=== PATIENT | female | born 1995 | race African-American/Black ===

== ENCOUNTER 2019-05-12 05:24 | Emergency (ER) | payer SELFPAY ==
[~2019-05-12] VITALS: Ht 165.1 cm; Wt 61.2 kg
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
--- NOTE | 2019-05-12 06:30 | NUR ---
PT RESTING IN BED, NAD NOTED. WILL CONTINUE TO MONITOR.
--- NOTE | 2019-05-12 07:05 | NUR ---
Patient discharged to home in stable condition. Written and verbal after care instructions given. Patient verbalizes understanding of instruction.
[2019-05-12 07:06] VITALS: BP 115/72
== END 2019-05-12 07:08 | disposition home or self-care (01) ==
LOC: ER 05:26
DX: F41.9 Anxiety disorder, unspecified (principal)

== ENCOUNTER 2024-11-05 13:51 | Emergency (ER) | payer MEDICAID ==
[~2024-11-05] VITALS: Ht 167.6 cm; Wt 61.2 kg
[2024-11-05 14:15] VITALS: BP 120/85; TEMP 98.2
[2024-11-05] MEDS ORDERED: ONDA4TAB5 PO (14:48)
[2024-11-05] MEDS ORDERED: IBUP-1955 PO (14:48)
[2024-11-05] MEDS ORDERED: BENZ-13 PO (14:48)
[2024-11-05] MEDS ORDERED: IBUPROFEN 600 MG TABLET ONE (14:53)
[2024-11-05] MEDS: IBUPROFEN 600 MG TABLET PO ONE (15:02)
[2024-11-05 15:03] VITALS: O2SAT 99
== END 2024-11-05 15:03 | disposition home or self-care (01) ==
LOC: ER 13:51
DX: J06.9 Acute upper respiratory infection, unspecified (principal); R11.0 Nausea; R53.1 Weakness; H92.03 Otalgia, bilateral; Z20.822 Contact with and (suspected) exposure to COVID-19